=== PATIENT | female | born 1935 | race African-American/Black ===

== ENCOUNTER 2017-05-06 17:53 | Emergency (ER) | payer MEDICARE, OTHER ==
--- NOTE | 2017-05-06 18:57 | ER Document Report ---
ED Medical Screen (RME) - General Chief Complaint: Headache Stated Complaint: HEADACHE,RIGHT SHOULDER/NECK PAIN Time Seen by Provider: 05/06/17 18:55 Notes: Patient woke up this morning with severe diffuse headache and blurry vision. She denies any previous history of high blood pressure. States she does not take any blood pressure medicine regularly. She is had some nausea. But no vomiting. No recent trauma. TRAVEL OUTSIDE OF THE [place] IN LAST 30 DAYS: No - Related Data Allergies/Adverse Reactions: Penicillins Allergy (Severe, Verified 05/06/17 18:09) Hives Past Medical History Renal/ Medical History: Denies: Hx Peritoneal Dialysis Physical Exam - Vital signs Vitals: Temp Pulse Resp BP Pulse Ox 98.1 F 60 20 213/72 H 98 05/06/17 18:35 05/06/17 18:35 05/06/17 18:35 05/06/17 18:35 05/06/17 18:35 Course - Vital Signs Vital signs: Temp Pulse Resp BP Pulse Ox 98.1 F 60 20 212/87 H 98 05/06/17 18:35 05/06/17 18:35 05/06/17 18:35 05/06/17 18:46 05/06/17 18:35
[2017-05-06 19:37] LABS: APPEARANCE,URINE CLEAR; BILIRUBIN,URINE NEGATIVE (NEGATIVE); GLUCOSE, URINE NEGATIVE (NEGATIVE); KETONES,URINE NEGATIVE (NEGATIVE); LEUKOCYTE ESTERASE,URINE SMALL (NEGATIVE); NITRITE,URINE NEGATIVE (NEGATIVE); PROTEIN,URINE 30 mg/dL (NEGATIVE); URINE SPECIFIC GRAVITY 1.011; UROBILINOGEN,URINE NEGATIVE mg/dL (<2.0)
[2017-05-06 19:42] LABS: WBC,URINE 0-1 /HPF
[2017-05-06 20:04] LABS: ABSOLUTE EOSINOPHILS # (AUTO) 0.1 10^3/uL (0.0-0.6); ABSOLUTE LYMPHOCYTES (AUTO) 3.5 10^3/uL (0.5-4.7); ABSOLUTE MONOCYTES (AUTO) 0.4 10^3/uL (0.1-1.4); ABSOLUTE NEUT (AUTO) 2.6 10^3/uL (1.7-8.2); BASOPHILS % (AUTO) 0.7 % (0-2); EOSINOPHILS % (AUTO) 2.1 % (0-6); HEMATOCRIT 39.3 % (36.0-47.0); HEMOGLOBIN 13.9 g/dL (12.0-15.5); HGB HCT DIFFERENCE 2.4; LYMPHOCYTES % (AUTO) 51.8 % (13-45); MEAN CORPUSCULAR HEMOGLOBIN 30.9 pg (27.0-33.4); MEAN CORPUSCULAR HGB CONC 35.4 g/dL (32.0-36.0); MEAN CORPUSCULAR VOLUME 87 fl (80-97); MONOCYTES % (AUTO) 6.5 % (3-13); RED CELL DISTRIBUTION WIDTH 13.3 % (11.5-14.0); SEGMENTED NEUTROPHILS % (AUTO) 38.9 % (42-78); WHITE BLOOD COUNT 6.8 10^3/uL (4.0-10.5)
[2017-05-06 20:16] LABS: ANION GAP 11 (5-19); BLOOD UREA NITROGEN 12 mg/dL (7-20); CARBON DIOXIDE 27 mmol/L (22-30); CHLORIDE 103 mmol/L (98-107); CREATININE RESULT 0.74 mg/dL (0.52-1.25); GLUCOSE 162 mg/dL (75-110); POTASSIUM 3.6 mmol/L (3.6-5.0)
--- NOTE | 2017-05-06 20:51 | ER Document Report ---
ED General - General Chief Complaint: Headache Stated Complaint: HEADACHE,RIGHT SHOULDER/NECK PAIN Time Seen by Provider: 05/06/17 18:55 Notes: Patient is a 81-year-old female that comes emergency department for chief complaint of headache, she woke up with a headache this morning, she states it is throbbing all over her head. She states she has had intermittent mildly blurry vision, no visual loss, denies visual changes at this time. She denies focal numbness or weakness that is new although she states for the past week she has had numbness in her right hand. She also reports pain and swelling behind her right knee for the past 2 weeks, she states she is walking funny because of this and now she hurts in her right side and shoulder and neck. She denies fever, trauma, chest pain, dizziness. She denies any known past medical history, she states she was checked about 6 months ago by primary care and told she has normal blood pressure and no medical problems. Only past medical history she is telling me is appendectomy when she was 20. She takes no medications every day. Her son drove her here. TRAVEL OUTSIDE OF THE [place] IN LAST 30 DAYS: No - Related Data Allergies/Adverse Reactions: Penicillins Allergy (Severe, Verified 05/06/17 18:09) Hives Past Medical History - General Information source: Patient - Social History Smoking Status: Never Smoker Frequency of alcohol use: None Drug Abuse: None Lives with: Family Family History: Reviewed & Not Pertinent Patient has suicidal ideation: No Patient has homicidal ideation: No - Medical History Medical History: Negative Renal/ Medical History: Denies: Hx Peritoneal Dialysis Past Surgical History: Reports: Hx Appendectomy - Immunizations Hx Diphtheria, Pertussis, Tetanus Vaccination: Yes Review of Systems - Review of Systems Constitutional: No symptoms reported EENT: No symptoms reported Cardiovascular: No symptoms reported Respiratory: No symptoms reported Gastrointestinal: No symptoms reported Genitourinary: No symptoms reported Female Genitourinary: No symptoms reported Musculoskeletal: See HPI Skin: No symptoms reported Hematologic/Lymphatic: No symptoms reported Neurological/Psychological: See HPI Physical Exam - Vital signs Vitals: Temp Pulse Resp BP Pulse Ox 98.1 F 60 20 213/72 H 98 05/06/17 18:35 05/06/17 18:35 05/06/17 18:35 05/06/17 18:35 05/06/17 18:35 Interpretation: Normal - General General appearance: Appears well, Alert In distress: None - HEENT Head: Normocephalic, Atraumatic Eyes: Normal Conjunctiva: Normal Extraocular movements intact: Yes Eyelashes: Normal Pupils: PERRL Mouth/Lips: Normal Mucous membranes: Normal Pharynx: Normal Neck: Normal. No: Meningismus - Respiratory Respiratory status: No respiratory distress Chest status: Nontender Breath sounds: Normal Chest palpation: Normal - Cardiovascular Rhythm: Regular Heart sounds: Normal auscultation Murmur: No - Abdominal Inspection: Normal Distension: No distension Bowel sounds: Normal Tenderness: Nontender Organomegaly: No organomegaly - Back Back: Normal, Nontender. No: Tender, Vertebra tenderness - Extremities General upper extremity: Normal inspection, Nontender, Normal color, Normal ROM , Normal temperature General lower extremity: Other - There is generalized tenderness over the right knee, mainly in the back, no abnormal erythema or heat, range of motion still intact, normal distal neurovascular exam, normal lower extremity exam otherwise - Neurological Neuro grossly intact: Yes Cognition: Normal Orientation: AAOx4 Artemio Coma Scale Eye Opening: Spontaneous Sycamore Coma Scale Verbal: Oriented Sycamore Coma Scale Motor: Obeys Commands Sycamore Coma Scale Total: 15 Speech: Normal Cranial nerves: Normal Cerebellar coordination: Normal Motor strength normal: LUE, RUE, LLE, RLE 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 Patient mainly complains of pain in her knee on my exam, she does report a headache, she is very hypertensive. Decision was made to control her pain and if she is still hypertensive to treat her hypertension because of her headache. Patient given 3 mg of morphine and 4 mg of Zofran. CAT scan of the head with no acute abnormality. Patient has no neurological deficits. She does not appear to be in any distress. She ambulates with pain. CBC, chemistry unremarkable. Vital signs otherwise unremarkable. Patient is denying any chest pain. On reevaluation after treatment her blood pressure has significantly improved, she denies any headache, she states the pain in her knee is gone. Hypertension and headache do appear to be from the pain of her knee. Doppler of the knee shows no abnormality, x-ray of the knee shows loss of joint space medially and degenerative changes. There is no erythema, abnormal heat, or loss of range of motion suggesting septic joint. Patient provided with an x-ray, patient will be referred to orthopedics. Because the amount of pain she was having causing high blood pressure and headaches patient will be provided with treatment for this at home. Advised to follow-up with primary care closely, given referral for this. Advised follow-up with orthopedics closely. Discussed return precautions in detail. Patient states satisfaction and agreement. - Vital Signs Vital signs: Temp Pulse Resp BP Pulse Ox 98.1 F 60 13 152/76 H 98 05/06/17 18:35 05/06/17 18:35 05/07/17 01:01 05/07/17 01:01 05/07/17 01:01 - Laboratory Result Diagrams: 05/06/17 19:52 05/06/17 19:52 Laboratory results interpreted by me: 05/06/17 05/06/17 05/06/17 18:57 19:52 19:52 Seg Neutrophils % 38.9 L Lymphocytes % 51.8 H Glucose 162 H Urine Protein 30 H Urine Blood SMALL H Ur Leukocyte Esterase SMALL H Discharge - Discharge Clinical Impression: Elevated blood pressure reading Right knee pain Qualifiers: Chronicity: acute Qualified Code(s): M25.561 - Pain in right knee Headache Qualifiers: Headache type: unspecified Headache chronicity pattern: acute headache Intractability: not intractable Qualified Code(s): R51 - Headache Condition: Stable Disposition: HOME, SELF-CARE Instructions: Oral Narcotic Medication ([facility]) Additional Instructions: Your ultrasound does not show blood clot in your leg. X-ray shows degenerative rate down in your knee. Take the naproxen, apply ice to your knee 3-4 times a day, elevate your knee, take the Percocet pain medicine only if needed, if you do take it take the Colace to avoid constipation. Follow-up with the orthopedic referral (Dr. Gerard) for additional management of your knee. Follow-up with primary care for recheck of your blood pressure and additional monitoring (see referral). Return to the emergency department for any concerning or worsening symptoms including redness or swelling of the knee, fever, chest pain, severe headache, or any other concerning symptoms. Prescriptions: Docusate Sodium [Colace 100 mg Capsule] 100 mg PO ASDIR PRN #30 capsule PRN Reason: Naproxen 250 mg PO DAILY #14 tablet Oxycodone HCl/Acetaminophen [Percocet 5-325 mg Tablet] 0.5 - 1 tab PO Q4H PRN # 15 tablet PRN Reason: Forms: Elevated Blood Pressure Referrals: HERRERA ARMSTRONG MD [ACTIVE STAFF] - Follow up in 1 week PALMA GERARD DO [ACTIVE STAFF] - Follow up in 1 week
--- NOTE | 2017-05-06 20:54 | RADIOLOGY REPORT (SQ) ---
EXAM DESCRIPTION: CT HEAD WITHOUT COMPLETED DATE/TIME: 05/06/2017 8:28 pm REASON FOR STUDY: pain COMPARISON: None. TECHNIQUE: Axial images acquired through the brain without intravenous contrast. Images reviewed wi th bone, brain and subdural windows. Images stored on PACS. All CT scanners at this facility use dose modulation, iterative reconstruction, and/or weight based d osing when appropriate to reduce radiation dose to as low as reasonably achievable (ALARA). [facility]: Dose Right [facility]: CareDose [facility]: Dose Right [facility]: Teradose 4D [facility]: [employer] RADIATION DOSE: mGy. LIMITATIONS: None. FINDINGS: VENTRICLES: Normal size and contour. CEREBRUM: No masses. No hemorrhage. No midline shift. No evidence for acute infarction. Normal gra y/white matter differentiation. No areas of low density in the white matter. CEREBELLUM: No masses. No hemorrhage. No alteration of density. No evidence for acute infarction. EXTRAAXIAL SPACES: No fluid collections. No masses. ORBITS AND GLOBE: No intra- or extraconal masses. Normal contour of globe without masses. CALVARIUM: No fracture. PARANASAL SINUSES: No fluid or mucosal thickening. SOFT TISSUES: No mass or hematoma. OTHER: No other significant finding. IMPRESSION: NORMAL BRAIN CT WITHOUT CONTRAST. EVIDENCE OF ACUTE STROKE: NO. COMMENT: Quality ID # [id number]: Final reports with documentation of one or more dose reduction techniques (e.g., Automated exposure control, adjustment of the mA and/or kV according to patient size, use of iterative reconstruction technique) TECHNICAL DOCUMENTATION: JOB ID: [id number] [employer]- All Rights Reserved
[2017-05-06] MEDS ORDERED: ONDANSETRON HCL INJ/PF 4 MG/2 ML SDV IV ONE (21:15)
[2017-05-06] MEDS ORDERED: MORPHINE SULFATE 10 MG/ML INJ IV ONE (21:15)
--- NOTE | 2017-05-07 00:55 | RADIOLOGY REPORT (SQ) ---
EXAM DESCRIPTION: KNEE RIGHT 4 VIEWS CLINICAL HISTORY: 81 years, Female, swelling, pain COMPARISON: None. NUMBER OF VIEWS: 4. TECHNIQUE: Frontal, lateral, and obliques. LIMITATIONS: None. FINDINGS: Mild/moderate osteoarthritis of the medial compartment. Small moderate patellar and anterior tibial tubercle enthesophytes. Bony demineralization. No significant effusion. IMPRESSION: No acute findings. Mild/moderate osteoarthritis. 2011 [employer]- All Rights Reserved
[2017-05-07 01:10] VITALS: BP 152/76
--- NOTE | 2017-05-07 01:48 | RADIOLOGY REPORT (SQ) ---
EXAM DESCRIPTION: VENOUS UNILATERAL LOWER CLINICAL HISTORY: 81 years, Female, swelling and pain behind right knee COMPARISON: None. TECHNIQUE: Venous Doppler sonogram. LIMITATIONS: None. FINDINGS: Based on color Doppler sonogram, compressibility, and augmentation maneuvers there is no evidence of deep venous thrombosis in the right lower extremity. Comparative contralateral left common femoral vein appears unremarkable. IMPRESSION: No evidence of DVT of the right lower extremity. 2011 [employer]- All Rights Reserved
== END 2017-05-07 01:24 | disposition home or self-care (01) ==
LOC: ER 17:53
DX: R03.0 Elevated blood-pressure reading, without diagnosis of hypertension (principal); M25.561 Pain in right knee; R51 Headache; M54.2 Cervicalgia; M25.511 Pain in right shoulder; Z88.0 Allergy status to penicillin
CPT/HCPCS: 99284; 96374; 96375; 36415; 85025; 80048; 81001; 93971; 73564; 70450; J2270; J2405